=== PATIENT | female | born 1960 ===

== ENCOUNTER 2017-12-29 21:38 | Emergency (ER) | payer BC ==
[2017-12-29 21:44] VITALS: BP 144/89; PULSE 96; RESP 19; TEMP 98.2; O2SAT 100
--- NOTE | 2017-12-29 22:02 | ED PDOC ---
HPI: General Adult Time Seen by Provider: 12/29/17 21:47 Chief Complaint (Nursing): Back Pain Chief Complaint (Provider): pustular lesions History Per: Patient Additional Complaint(s): 57-year-old female presents with multiple boils to bilateral thighs and hips. She states this has been ongoing for 1 month. Patient was seen at a clinic one week ago and was started on Keflex but symptoms have not improved. She denies any active drainage, denies fever or chills. PMD: clinic in [place] Past Medical History Reviewed: Historical Data, Nursing Documentation, Vital Signs Vital Signs: Last Vital Signs Temp 98.2 F 12/29/17 21:43 Pulse 96 H 12/29/17 21:43 Resp 19 12/29/17 21:43 BP 144/89 12/29/17 21:43 Pulse Ox 100 12/29/17 21:43 - Medical History PMH: No Chronic Diseases - Family History Family History: States: No Known Family Hx - Living Arrangements Living Arrangements: Alone - Social History Current smoker - smoking cessation education provided: No Alcohol: None Drugs: Denies - Home Medications Home Medications: Ambulatory Orders Medication Instructions Recorded Amoxicillin/Clavulanate [Augmentin 1 tab PO BID #14 tab 12/29/17 875 MG-125 MG] Clindamycin [Cleocin] 300 mg PO QID #28 cap 12/29/17 Ibuprofen [Motrin Tab] 800 mg PO Q8 PRN #20 tab 12/29/17 - Allergies Allergies/Adverse Reactions: Allergies Allergy/AdvReac Type Severity Reaction Status Date / Time No Known Allergies Allergy Verified 12/29/17 21:42 Review of Systems ROS Statement: Except As Marked, All Systems Reviewed And Found Negative Constitutional: Negative for: Fever Skin: Positive for: Other (multiple pustular lesions) Physical Exam - Reviewed Nursing Documentation Reviewed: Yes Vital Signs Reviewed: Yes - Physical Exam Appears: Positive for: Well, Non-toxic, No Acute Distress Skin: Positive for: Normal Color, Rash (Multiple pustular lesions noted to bilateral hips and medial thighs, no active drainage, no central pointing or fluctuance noted to lesions. Mild localized erythema noted to all lesions with no diffuse cellulitis) Eye Exam: Positive for: Normal appearance Cardiovascular/Chest: Positive for: Regular Rate, Rhythm Respiratory: Positive for: Normal Breath Sounds. Negative for: Wheezing, Respiratory Distress Extremity: Positive for: Normal ROM Neurologic/Psych: Positive for: Alert, Oriented - ECG O2 Sat by Pulse Oximetry: 100 Pulse Ox Interpretation: Normal Medical Decision Making Medical Decision Making: Impression: multiple boils Patient was instructed to discontinue use of Keflex and was given prescriptions for Augmentin, clindamycin and Motrin. Patient was referred to clinic for follow -up in 2-3 days and is aware she can return any time if acutely worse Disposition - Clinical Impression Clinical Impression: Boils - Patient ED Disposition Is Patient to be Admitted: No Counseled Patient/Family Regarding: Diagnosis, Need For Followup, Rx Given - Disposition Referrals: [facility] [Outside] Disposition: Routine/Home Disposition Time: 21:58 Condition: STABLE Additional Instructions: Wash area daily with soap and water. Motrin as needed for pain. Take prescription meds as directed. Follow-up with clinic in 2-3 days. Prescriptions: Amoxicillin/Clavulanate [Augmentin 875 MG-125 MG] 1 tab PO BID #14 tab Clindamycin [Cleocin] 300 mg PO QID #28 cap Ibuprofen [Motrin Tab] 800 mg PO Q8 PRN #20 tab PRN Reason: Pain, Moderate (4-7) Instructions: Boil Forms: [employer] (Ukrainian) Print Language: [id number]
== END 2017-12-29 22:56 | disposition home or self-care (01) ==
LOC: H.ER 21:38
DX: L02.92 Furuncle, unspecified (principal)